=== PATIENT | male | born 1940 | race Caucasian/White ===

== ENCOUNTER 2017-04-14 14:27 | Emergency (ER) | payer MEDICAID, MEDICARE ==
[2017-04-14] MEDS ORDERED: Sodium Chloride 0.9% 10 ML Syringe FLUSH PRN ×2 (14:55→17:03)
[2017-04-14] MEDS ORDERED: HYDROmorphone 0.5 MG/0.5 ML Syringe IVPUSH ONE ×2 (15:02→19:16)
[2017-04-14] MEDS ORDERED: Ondansetron 4 MG/2 ML SDV IVPUSH ONE (15:02)
[2017-04-14] MEDS ORDERED: Famotidine 20 MG Tab PO ONE (15:02)
[2017-04-14] MEDS ORDERED: Sodium Chloride 0.9% 1,000 ML IV SCH (15:15)
[2017-04-14] MEDS ORDERED: Diatrizoate Meglumine/Diatrizoate Sodium 37% 120 ML Bottle PO ONE (17:03)
[2017-04-14] MEDS ORDERED: Iopamidol 612 MG/ML 150 ML Bottle IVPUSH ONE (17:03)
--- NOTE | 2017-04-14 17:58 | EDM.PDOC ---
ED HPI GENERAL MEDICAL PROBLEM - General Chief Complaint: Abdominal Pain Stated Complaint: CONSTIPATION Time Seen by Provider: 04/14/17 14:48 Source of Information: Reports: Patient, RN Notes Reviewed - History of Present Illness INITIAL COMMENTS - FREE TEXT/NARRATIVE: 76-year-old male comes in with abdominal pain nausea, not feeling well. This started yesterday and has been primarily involving the left lower abdomen. He has no appetite today. He's had some chills but no definite fever. His been nauseated but not vomiting. States he had a slight amount of loose stool today, no major diarrhea. He denies being constipated. The pain does not radiate into his back. No chest pain or difficulty breathing. The pain also does not cross over to the right abdomen. He states he was at a movie last night and did eat popcorn. No known history of prior diverticulitis. Treatments [employer]: Reports: Other (see below) Other Treatments [employer]ER: none Abdomen Pain Score (Numeric/FACES): 6 - Related Data Allergies Allergy/AdvReac Type Severity Reaction Status Date / Time No Known Allergies Allergy Verified 04/14/17 14:44 Home Meds: Home Meds Collagen Enhance 1 - 2 mg PO DAILY 04/14/17 [History] Fish Oil/[place]-3 Fatty Acids [Fish Oil 1,000 MG] 1 gram PO DAILY 04/14/17 [ History] Hydrocodone/Acetaminophen [[place] 5-325 Tablet] 1 each PO Q6HR PRN #10 tablet [Rx] Joint Juice 1 cap PO DAILY 04/14/17 [History] Levofloxacin [Levaquin] 500 mg PO DAILY #10 tab 04/14/17 [Rx] Pycnogenol 1 - 2 cap PO DAILY 04/14/17 [History] Tumeric 1 tab PO DAILY 04/14/17 [History] metroNIDAZOLE [Flagyl] 500 mg PO Q8H #20 tab 04/14/17 [Rx] Past Medical History Musculoskeletal History: Reports: Arthritis, Back Pain, Chronic Psychiatric History: Reports: Anxiety, Depression - Past Surgical History GI Surgical History: Reports: Hernia, Abdominal Social & Family History - Tobacco Use Smoking Status *Q: Never Smoker - Caffeine Use Caffeine Use: Reports: Coffee, Soda, Tea - Recreational Drug Use Recreational Drug Use: No ED ROS GENERAL - Review of Systems Review Of Systems: See Below Constitutional: Reports: Chills. Denies: Fever HEENT: Denies: Sinus Problem, Throat Pain Respiratory: Denies: Shortness of Breath, Pleuritic Chest Pain Cardiovascular: Denies: Chest Pain GI/Abdominal: Reports: Abdominal Pain, Decreased Appetite, Nausea. Denies: Constipation, Diarrhea, Vomiting Musculoskeletal: Denies: Back Pain Skin: Reports: No Symptoms Neurological: Reports: No Symptoms ED EXAM, GI/ABD - Physical Exam Exam: See Below General Appearance: Alert, Mild Distress Eyes: Bilateral: Normal Appearance Throat/Mouth: Normal Inspection, Normal Oropharynx Head: Atraumatic. No: Facial Swelling Neck: Supple, Full Range of Motion Respiratory/Chest: No Respiratory Distress, Lungs Clear, Normal Breath Sounds Cardiovascular: Regular Rate, Rhythm GI/Abdominal Exam: Soft, Tender (Moderate tenderness left lower abdomen, abdomen otherwise soft and nontender). No: Guarding, Rebound Extremities: Normal Inspection, Normal Range of Motion. No: Pedal Edema, Leg Pain Neurological: Alert, Oriented, No Motor/Sensory Deficits Skin Exam: Warm, Dry, Normal Color Course - Vital Signs Last Recorded V/S: Last Vital Signs Temp 98.1 F 04/14/17 14:43 Pulse 81 04/14/17 14:43 Resp 20 04/14/17 14:43 BP 157/85 H 04/14/17 14:43 Pulse Ox 97 04/14/17 14:43 - Orders/Labs/Meds Orders: Active Orders 24 hr Category Date Time Status Peripheral IV Care [RC] . DIRECTED Care 04/14/17 14:55 Active Levofloxacin/Dextrose 5%-Water [Levaquin in D5W 750 MG/ Med 04/14/17 18:25 Active 150 ML] 750 mg Premix Bag 1 bag IV ONETIME Sodium Chloride 0.9% [Normal Saline] 1,000 ml Med 04/14/17 15:15 Active IV ONETIME Sodium Chloride 0.9% [Saline Flush] Med 04/14/17 14:55 Active 10 ml FLUSH ASDIRECTED PRN Sodium Chloride 0.9% [Saline Flush] Med 04/14/17 17:03 Active 10 ml FLUSH ONETIME PRN metroNIDAZOLE/Normal Saline [Flagyl 500 MG in NS 100 ML Med 04/14/17 18:26 Active ] 500 mg Premix Bag 1 bag IV ONETIME Peripheral IV Insertion Adult [OM.PC] Stat Oth 04/14/17 14:55 Ordered Medication Orders Sodium Chloride (Normal Saline) 1,000 mls @ 999 mls/hr IV ONETIME ANA Last Admin: 04/14/17 15:22 Dose: 999 mls/hr Levofloxacin/Dextrose 750 mg/ (Premix) 150 mls @ 100 mls/hr IV ONETIME ONE Stop: 04/14/17 19:54 Last Admin: 04/14/17 18:40 Dose: 100 mls/hr Metronidazole 500 mg/ Premix 100 mls @ 100 mls/hr IV ONETIME ONE Stop: 04/14/17 19:25 Last Admin: 04/14/17 18:40 Dose: 100 mls/hr Sodium Chloride (Saline Flush) 10 ml FLUSH ASDIRECTED PRN PRN Reason: Keep Vein Open Last Admin: 04/14/17 15:24 Dose: 10 ml Sodium Chloride (Saline Flush) 10 ml FLUSH ONETIME PRN PRN Reason: IV FLUSH Last Admin: 04/14/17 17:32 Dose: 10 ml Labs: Laboratory Tests 04/14/17 04/14/17 04/14/17 Range/Units 15:13 15:13 15:13 WBC 15.33 H (4.23-9.07) K/mm3 RBC 4.95 (4.63-6.08) M/mm3 Hgb 15.3 (13.7-17.5) gm/L Hct 46.4 (40.1-51.0) % MCV 93.7 H (79.0-92.2) fl MCH 30.9 (25.7-32.2) pg MCHC 33.0 (32.2-35.5) g/dl RDW Std Deviation 44.7 H (35.1-43.9) fL Plt Count 329 (163-337) K/mm3 MPV 9.8 (9.4-12.3) fl Neut % (Auto) 92.0 H (34.0-67.9) % Lymph % (Auto) 4.9 L (21.8-53.1) % [place] % (Auto) 2.7 L (5.3-12.2) % Eos % (Auto) 0.1 L (0.8-7.0) Baso % (Auto) 0.1 (0.1-1.2) % Neut # (Auto) 14.11 H (1.78-5.38) K/mm3 Lymph # (Auto) 0.75 L (1.32-3.57) K/mm3 [place] # (Auto) 0.41 (0.30-0.82) K/mm3 Eos # (Auto) 0.02 L (0.04-0.54) K/mm3 Baso # (Auto) 0.01 (0.01-0.08) K/mm3 Manual Slide Review Abnormal smear Sodium 140 (136-145) mEq/L Potassium 3.7 (3.5-5.1) mEq/L Chloride 102 (98-107) mEq/L Carbon Dioxide 25 (21-32) mEq/L Anion Gap 16.7 H (5-15) BUN 9 (7-18) mg/dL Creatinine 1.0 (0.7-1.3) mg/dL Est Cr Clr Drug Dosing 62.70 mL/min Estimated GFR (MDRD) > 60 (>60) mL/min BUN/Creatinine Ratio 9.0 L (14-18) Glucose 160 H (83-115) mg/dL POC Glucose (83-110) mg/dL Calcium 8.9 (8.5-10.1) mg/dL Total Bilirubin 0.6 (0.2-1.0) mg/dL AST 23 (15-37) U/L ALT 30 (16-63) U/L Alkaline Phosphatase 58 (46-116) U/L C-Reactive Protein 0.6 (<1.0) mg/dL Total Protein 7.8 (6.4-8.2) g/dl Albumin 4.1 (3.4-5.0) g/dl Globulin 3.7 gm/dL Albumin/Globulin Ratio 1.1 (1-2) 04/14/17 Range/Units 15:16 WBC (4.23-9.07) K/mm3 RBC (4.63-6.08) M/mm3 Hgb (13.7-17.5) gm/L Hct (40.1-51.0) % MCV (79.0-92.2) fl MCH (25.7-32.2) pg MCHC (32.2-35.5) g/dl RDW Std Deviation (35.1-43.9) fL Plt Count (163-337) K/mm3 MPV (9.4-12.3) fl Neut % (Auto) (34.0-67.9) % Lymph % (Auto) (21.8-53.1) % [place] % (Auto) (5.3-12.2) % Eos % (Auto) (0.8-7.0) Baso % (Auto) (0.1-1.2) % Neut # (Auto) (1.78-5.38) K/mm3 Lymph # (Auto) (1.32-3.57) K/mm3 [place] # (Auto) (0.30-0.82) K/mm3 Eos # (Auto) (0.04-0.54) K/mm3 Baso # (Auto) (0.01-0.08) K/mm3 Manual Slide Review Sodium (136-145) mEq/L Potassium (3.5-5.1) mEq/L Chloride (98-107) mEq/L Carbon Dioxide (21-32) mEq/L Anion Gap (5-15) BUN (7-18) mg/dL Creatinine (0.7-1.3) mg/dL Est Cr Clr Drug Dosing mL/min Estimated GFR (MDRD) (>60) mL/min BUN/Creatinine Ratio (14-18) Glucose (83-115) mg/dL POC Glucose 150 H (83-110) mg/dL Calcium (8.5-10.1) mg/dL Total Bilirubin (0.2-1.0) mg/dL AST (15-37) U/L ALT (16-63) U/L Alkaline Phosphatase (46-116) U/L C-Reactive Protein (<1.0) mg/dL Total Protein (6.4-8.2) g/dl Albumin (3.4-5.0) g/dl Globulin gm/dL Albumin/Globulin Ratio (1-2) Meds: Medications Generic Name Dose Route Start Last Admin Trade Name Freq PRN Reason Stop Dose Admin Sodium Chloride 1,000 mls @ 999 mls/hr 04/14/17 15:15 04/14/17 15:22 Normal Saline IV 999 mls/hr ONETIME ANA Administration Levofloxacin/Dextrose 750 mg/ 150 mls @ 100 mls/hr 04/14/17 18:25 04/14/17 18 :40 Premix IV 04/14/17 19:54 100 mls/hr ONETIME ONE Administration Metronidazole 500 mg/ Premix 100 mls @ 100 mls/hr 04/14/17 18:26 04/14/17 18: 40 IV 04/14/17 19:25 100 mls/hr ONETIME ONE Administration Sodium Chloride 10 ml 04/14/17 14:55 04/14/17 15:24 Saline Flush FLUSH 10 ml ASDIRECTED PRN Administration Keep Vein Open Sodium Chloride 10 ml 04/14/17 17:03 04/14/17 17:32 Saline Flush FLUSH 10 ml ONETIME PRN Administration IV FLUSH Discontinued Medications Generic Name Dose Route Start Last Admin Trade Name Freq PRN Reason Stop Dose Admin Diatrizoate Meglum/Diatrizoate Sod 90 ml 04/14/17 17:03 04/14/17 17:30 Gastrografin 37% PO 04/14/17 17:04 90 ml ONETIME ONE Administration Famotidine 20 mg 04/14/17 15:02 04/14/17 16:05 Pepcid PO 04/14/17 15:03 20 mg ONETIME ONE Administration Hydromorphone HCl 0.5 mg 04/14/17 15:02 04/14/17 15:25 Dilaudid IVPUSH 04/14/17 15:03 0.5 mg ONETIME ONE Administration Sodium Chloride 500 mls @ 999 mls/hr 04/14/17 18:19 Normal Saline IV 04/14/17 18:49 .BOLUS ONE Iopamidol 125 ml 04/14/17 17:03 04/14/17 17:32 Isovue-300 (61%) IVPUSH 04/14/17 17:04 125 ml ONETIME ONE Administration Ondansetron HCl 4 mg 04/14/17 15:02 04/14/17 15:23 Zofran IVPUSH 04/14/17 15:03 4 mg ONETIME ONE Administration Departure - Departure Time of Disposition: 18:59 Disposition: Home, Self-Care 01 Condition: Fair Clinical Impression: Diverticulitis - Discharge Information Prescriptions: Hydrocodone/Acetaminophen [[place] 5-325 Tablet] 1 each PO Q6HR PRN #10 tablet PRN Reason: Pain Levofloxacin [Levaquin] 500 mg PO DAILY #10 tab metroNIDAZOLE [Flagyl] 500 mg PO Q8H #20 tab Referrals: PCP,None [Primary Care Provider] - Forms: ED Department Discharge Additional Instructions: Rest, clear liquids and bland diet as tolerated, drink plenty of water to maintain hydration. Levaquin 500 mg daily for the next 10 days, Flagyl 500 mg 3 times daily for the next 7 days, Tylenol 3 times daily for mild to moderate discomfort as needed or hydrocodone if needed for more severe pain. Do not drive and take hydrocodone at same time. Do not take Tylenol and hydrocodone at the same time. Follow-up at our [facility] medical clinic in about 3-4 days for recheck. Call [phone] for appointment. Return to ED if symptoms worsening in any way. - My Orders Last 24 Hours: My Active Orders 04/14/17 14:55 Peripheral IV Care [RC] . DIRECTED Sodium Chloride 0.9% [Saline Flush] 10 ml FLUSH ASDIRECTED PRN Peripheral IV Insertion Adult [OM.PC] Stat 04/14/17 15:15 Sodium Chloride 0.9% [Normal Saline] 1,000 ml IV ONETIME 04/14/17 17:03 Sodium Chloride 0.9% [Saline Flush] 10 ml FLUSH ONETIME PRN 04/14/17 18:25 Levofloxacin/Dextrose 5%-Water [Levaquin in D5W 750 MG/150 ML] 750 mg Premix Bag 1 bag IV ONETIME 04/14/17 18:26 metroNIDAZOLE/Normal Saline [Flagyl 500 MG in NS 100 ML] 500 mg Premix Bag 1 bag IV ONETIME - Assessment/Plan Last 24 Hours: My Active Orders 04/14/17 14:55 Peripheral IV Care [RC] . DIRECTED Sodium Chloride 0.9% [Saline Flush] 10 ml FLUSH ASDIRECTED PRN Peripheral IV Insertion Adult [OM.PC] Stat 04/14/17 15:15 Sodium Chloride 0.9% [Normal Saline] 1,000 ml IV ONETIME 04/14/17 17:03 Sodium Chloride 0.9% [Saline Flush] 10 ml FLUSH ONETIME PRN 04/14/17 18:25 Levofloxacin/Dextrose 5%-Water [Levaquin in D5W 750 MG/150 ML] 750 mg Premix Bag 1 bag IV ONETIME 04/14/17 18:26 metroNIDAZOLE/Normal Saline [Flagyl 500 MG in NS 100 ML] 500 mg Premix Bag 1 bag IV ONETIME
--- NOTE | 2017-04-14 18:12 | CT ---
CT abdomen and pelvis Technique: Multiple axial sections were obtained from above the dome of the diaphragm inferiorly through the pubic symphysis. Intravenous and oral contrast was utilized. Delayed images were also obtained from above the dome of the diaphragm inferiorly through the pubic symphysis. Findings: Inflammatory change is seen around portions of the sigmoid colon with wall thickening. Numerous diverticuli are seen within the sigmoid colon. Findings are felt compatible with diverticulitis. No focal fluid collections are seen to indicate diverticular abscess at this time. Mild atelectasis seen within both lung bases. Small area of focal fatty eventration is seen within the posterior right diaphragm. Small cyst is noted within the caudate lobe of the liver measuring 1.6 cm. Spleen appears within normal limits. Small amount of contrast within the distal esophagus is compatible with reflux. Kidney show evidence of cysts with largest cyst measuring 1.7 cm. Pancreas is within normal limits. Gallbladder shows no calcified gallstones. Atherosclerotic change is noted within the aorta and iliac vessels. No aneurysm is seen. Prostate gland is enlarged and contains calcifications. No free fluid is seen. No bowel dilatation is identified. Bone window settings were reviewed showing degenerative change most prominent at L3-L4 through L5-S1 with mostly degenerative apophyseal change. Scoliosis is also present within the lumbar spine. Delayed images shows contrast within the throughout the ureters and within the bladder. Impression: 1. Findings compatible with moderately severe diverticulitis within the sigmoid colon. 2. No findings of diverticular abscess. 3. Other incidental findings as noted above. Diagnostic code #3
[2017-04-14] MEDS ORDERED: Sodium Chloride 0.9% 500 ML IV ONE (18:19)
[2017-04-14] MEDS ORDERED: Levofloxacin/Dextrose 5%-Water 750 MG in Premix Bag 1 BAG IV ONE (18:25)
[2017-04-14] MEDS ORDERED: metroNIDAZOLE/Normal Saline 500 MG in Premix Bag 1 BAG IV ONE (18:26)
== END 2017-04-14 20:20 | disposition home or self-care (01) ==
LOC: JD.ED 14:27
DX: K57.92 Diverticulitis of intestine, part unspecified, without perforation or abscess without bleeding (principal)
CPT/HCPCS: 36415; 74177; 80053; 82962; 85025; 86140; 96361; 96365; 96366; 96368; 96375; 96376; 99284; A9270; J1170; J1956; J2405; J7040; J7050; Q9963; Q9967